=== PATIENT | male | born 1995 | race American Indian/Alaskan Native ===

== ENCOUNTER 2018-03-19 19:55 | Emergency (ER) | payer SELFPAY ==
[2018-03-19 20:36] VITALS: BP 118/65
--- NOTE | 2018-03-19 21:44 | Cat Scan Report ---
FINAL REPORT PROCEDURE: CT HEAD/BRAIN WO CON TECHNIQUE: Computerized tomography of the head was performed without contrast material. HISTORY: headache COMPARISON: No prior studies are available for comparison. FINDINGS: Skull and scalp: Normal. Paranasal sinuses: Fluid in the bilateral maxillary sinuses. There is ethmoid opacification.. Ventricles and subarachnoid spaces: Normal. Cerebrum: No evidence of hemorrhage, acute infarction or mass . Cerebellum and brainstem: No evidence of hemorrhage, acute infarction or mass. Vasculature: Normal. Comments: None. IMPRESSION: Normal CT brain. Sinusitis including fluid consistent with acute component in the maxillary region.
== END 2018-03-19 23:50 | disposition left against medical advice (07) ==
LOC: ED 19:55
DX: R51 Headache (principal); Z53.21 Procedure and treatment not carried out due to patient leaving prior to being seen by health care provider
CPT/HCPCS: 70450

== ENCOUNTER 2018-03-20 19:32 | Emergency (ER) | payer SELFPAY ==
[2018-03-20] MEDS ORDERED: TORADOL ONE (19:58)
[2018-03-20 20:06] VITALS: BP 130/90
[2018-03-20] MEDS ORDERED: TORADOL IM ONE (20:06)
--- NOTE | 2018-03-21 03:52 | Emergency Department Report ---
<LOW CARLSON - Last Filed: 03/21/18 03:54> ED Headache HPI - General Chief Complaint: Headache Stated Complaint: H/A Time Seen by Provider: 03/21/18 03:50 Source: patient Exam Limitations: no limitations - History of Present Illness Initial Comments: 22-year-old comes in for complaint of headache 1 week. Patient reports he has taken Advil but the headache keeps coming back. Patient reports that headaches are sharp stabbing pain is constant on the right side. He reports his pain to 4 out of 10. He denies any change of vision, no nausea no vomiting, no photosensitivity, but is drinking water. 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 He denies any past medical history currently takes no medications on a daily basis and has no known drug allergies. Timing/Duration: 1 week Quality: moderate, constant, sharp Head Injury Location: temporal Recent Head Trauma: no recent headache/trauma Associated Symptoms: denies: nausea/vomiting, stiff neck, vision changes Allergies/Adverse Reactions: Allergies No Known Allergies Allergy (Verified 03/19/18 20:31) Home Medications: Ambulatory Orders Fluticasone [Flonase] 1 spray NS QDAY #1 bottle 03/21/18 Ibuprofen [Motrin 800 MG tab] 800 mg PO Q8HR PRN #30 tablet 03/21/18 Pseudoephedrine ER [Sudafed 12 Hr] 120 mg PO BID 10 Days #20 tablet.er 03/21/18 ED Review of Systems ROS: Stated complaint: H/A Other details as noted in HPI Neurological: headache ED Past Medical Hx - Past Medical History Previous Medical History?: No - Surgical History Past Surgical History?: No - Social History Smoking Status: Never Smoker Substance Use Type: None - Medications Home Medications: Home Medications Medication Instructions Recorded Confirmed Last Taken Type Fluticasone [Flonase] 1 spray NS QDAY #1 bottle 03/21/18 Unknown Rx Ibuprofen [Motrin 800 MG tab] 800 mg PO Q8HR PRN #30 tablet 03/21/18 Unknown Rx Pseudoephedrine ER [Sudafed 12 Hr] 120 mg PO BID 10 Days #20 tablet.er 03/21/18 Unknown Rx ED Physical Exam - General Limitations: No Limitations - Expanded Neurological Exam Expanded Cranial nerves: EOM's Intact: Normal, Gag Reflex: Normal, Tongue Deviation: Normal, Nystagmus: Normal, Facial Sensation: Normal, Facial Palsy with Forehead Movement: Normal, Facial Palsy without Forehead Movement: Normal Cerebellar function: Finger to Nose: Normal, Heel to Lamb: Normal, Romberg: Normal Upper motor neuron: Ronald Neglect: Normal, Pronator Drift: Normal, Babinski Sign : Normal, Sensory Extinction: Normal Sensory exam: Upper Extremity Light Touch: Normal, Upper Extremity Pin Prick: Normal, Upper Extremity Temperature: Normal, UE 2 Point Discrimination: Normal, Lower Extremity Light Touch: Normal, Lower Extremity Pin Prick: Normal, Lower Extremity Temperature: Normal, LE 2 Point Discrimination: Normal Motor strength exam: RUE: 5, LUE: 5, RLE: 5, LLE: 5 Best Eye Response ([place]): (4) open spontaneously Best Motor Response ([place]): (6) obeys commands Best Verbal Response ([place]): (5) oriented [place] Total: 15 - Psychiatric Psychiatric exam: Present: normal affect, normal mood - Skin Skin exam: Present: warm, dry, intact, normal color. Absent: rash ED Course Vital Signs 03/20/18 03/20/18 03/21/18 19:49 20:07 04:13 Temperature 97.2 F L Pulse Rate 62 71 Respiratory 18 18 16 Rate Blood Pressure 130/90 O2 Sat by Pulse 99 99 Oximetry ED Medical Decision Making - Radiology Data Radiology results: report reviewed, image reviewed FINAL REPORT PROCEDURE: CT HEAD/BRAIN WO CON TECHNIQUE: Computerized tomography of the head was performed without contrast material. HISTORY: headache COMPARISON: No prior studies are available for comparison. FINDINGS: Skull and scalp: Normal. Paranasal sinuses: Fluid in the bilateral maxillary sinuses. There is ethmoid opacification.. Ventricles and subarachnoid spaces: Normal. Cerebrum: No evidence of hemorrhage, acute infarction or mass . Cerebellum and brainstem: No evidence of hemorrhage, acute infarction or mass. Vasculature: Normal. Comments: None. IMPRESSION: Normal CT brain. Sinusitis including fluid consistent with acute component in the maxillary region. Transcribed By: NABILA Dictated By: RYAN VAZ MD Electronically Authenticated By: RYAN VAZ MD Signed Date/Time: 03/19/182140 DD/ 40 TD/TT: 03/19/182140 - Medical Decision Making Patient has been evaluated by this provider fast track. Patient has been given a Toradol injection which reports has helped with this headache. CT of his headache shows a patient has a maxillary sinus fluid level. Discussed the patient discharged him on Flonase Sudafed and ibuprofen. Discussed the patient if symptoms persist or gets worse to follow-up with the primary care provider. Patient verbalized understanding Critical care attestation.: If time is entered above; I have spent that time in minutes in the direct care of this critically ill patient, excluding procedure time. ED Disposition Disposition: DC-01 TO HOME OR SELFCARE Is pt being admited?: No Does the pt Need Aspirin: No Condition: Stable Instructions: Acute Headache (ED) Additional Instructions: Please take medication as prescribed. It appears secure headache is due to her sinuses. Sudafed with help dry the fluid in the sinus passages as well as the Flonase for help you nose from being Stuffy and allow the fluid to drain. If your symptoms persist or gets worse please follow-up with your primary care provider. Prescriptions: Fluticasone [Flonase] 1 spray NS QDAY #1 bottle Ibuprofen [Motrin 800 MG tab] 800 mg PO Q8HR PRN #30 tablet PRN Reason: Pain , Severe (7-10) Pseudoephedrine ER [Sudafed 12 Hr] 120 mg PO BID 10 Days #20 tablet.er Referrals: PRIMARY CARE, [Primary Care Provider] - 3-5 Days Forms: Work/School Release Form(ED) <JAY SMALL P - Last Filed: 03/21/18 06:23> ED Medical Decision Making - Medical Decision Making Attending physician was available for consultation and did not see the patient or receive an update during this visit.
== END 2018-03-21 04:13 | disposition home or self-care (01) ==
LOC: ED 19:32
DX: R51 Headache (principal)
CPT/HCPCS: 96372; 99283; J1885